=== PATIENT | female | born 1960 | race Caucasian/White ===

== ENCOUNTER 2023-08-10 00:21 | Observation (INO) | payer OTHER ==
[2023-08-10 02:20] LABS: INR 1.1 (<1.2); Partial Thromboplastin Time 28.3 sec (22.0-30.0); Prothrombin Time 12.3 sec (10.0-12.5)
[2023-08-10 02:31] LABS: Anisocytosis Slight; HCT 29.3 % (34.0-46.0); HGB 8.6 gm/dL (11.4-16.0); Hypochromasia Marked; MCH 21.9 pg (25.0-35.0); MCHC 29.5 g/dL (31.0-37.0); MCV 74.3 fL (80.0-100.0); Mean Platelet Volume 6.8; Microcytosis Moderate; Platelet Count 315 k/uL (150-450); RBC 3.94 m/uL (3.80-5.40); RDW 19.2 % (11.5-15.5); WBC 15.5 k/uL (3.8-10.6)
[2023-08-10] MEDS: IPRATROPIUM-ALBUTEROL 3 ML NEB INHALATION STA (02:32)
[2023-08-10] MEDS: ALBUTEROL NEBULIZED 2.5 MG/3 ML INHALATION STA (02:32)
[2023-08-10 02:33] LABS: ALT 30 U/L (4-34); AST 122 U/L (14-36); African American GFR (CKD) >90 (>60 ml/min/1.73 sqM); Albumin 3.8 g/dL (3.5-5.0); Alkaline Phosphatase 253 U/L (38-126); Blood Urea Nitrogen 5 mg/dL (7-17); Calcium 8.4 mg/dL (8.4-10.2); Carbon Dioxide 29 mmol/L (22-30); Glucose 85 mg/dL (74-99); Non-African American GFR(CKD) >90 (>60 ml/min/1.73 sqM); Potassium 3.9 mmol/L (3.5-5.1); Sodium 121 mmol/L (137-145); Total Bilirubin 1.4 mg/dL (0.2-1.3); Total Protein 7.1 g/dL (6.3-8.2)
[2023-08-10 02:38] LABS: NT-Pro-B-Type Natriuretic Pept 259 pg/mL
[2023-08-10 03:07] LABS: Anion Gap 5 mmol/L; Chloride 87 mmol/L (98-107)
[2023-08-10] MEDS ORDERED: IPRATROPIUM-ALBUTEROL 3 ML NEB INHALATION PRN (03:36)
[2023-08-10] MEDS ORDERED: NALOXONE 0.4 MG/ML 1 ML VIAL IVP PRN (03:36)
[2023-08-10 03:38] LABS: Anisocytosis (M) Present; Eosinophils # (M) 0.16 k/uL (0-0.7); Lymphocytes # (M) 2.79 k/uL (1.0-4.8); Monocytes # (M) 0.47 k/uL (0-1.0); Neutrophils # (M) 12.09 k/uL (1.3-7.7); Neutrophils % (M) 78 %; Nucleated Red Blood Cells 0 /100 WBC (0-0); Polychromasia Present; Target Cells Present; Total Cells Counted 100
[2023-08-10] MEDS: ACETAMINOPHEN TAB 325 MG TAB PO PRN (06:01)
[2023-08-10] MEDS: IPRATROPIUM-ALBUTEROL 3 ML NEB INHALATION SCH (08:12)
[2023-08-10] MEDS: predniSONE 20 MG TAB PO SCH (09:16)
[2023-08-10] MEDS: AMOXIC-POT CLAV 875-125MG 1 EACH TAB PO SCH (09:17)
[2023-08-10 11:02] LABS: ALT 26 U/L (4-34); AST 102 U/L (14-36); African American GFR (CKD) >90 (>60 ml/min/1.73 sqM); Albumin 3.5 g/dL (3.5-5.0); Albumin/Globulin Ratio 1.1; Alkaline Phosphatase 242 U/L (38-126); Anion Gap 5 mmol/L; Blood Urea Nitrogen 6 mg/dL (7-17); Calcium 8.6 mg/dL (8.4-10.2); Carbon Dioxide 32 mmol/L (22-30); Chloride 91 mmol/L (98-107); Globulin 3.2 g/dL; Glucose 89 mg/dL (74-99); Magnesium 1.7 mg/dL (1.6-2.3); Non-African American GFR(CKD) >90 (>60 ml/min/1.73 sqM); Sodium 128 mmol/L (137-145); Total Bilirubin 1.4 mg/dL (0.2-1.3); Total Protein 6.7 g/dL (6.3-8.2)
[2023-08-10 11:11] LABS: Anisocytosis Slight; Basophils % (A) 0 %; Eosinophils # (A) 0.4 k/uL (0-0.7); Eosinophils % (A) 3 %; HCT 28.3 % (34.0-46.0); HGB 8.3 gm/dL (11.4-16.0); Hypochromasia Marked; Lymphocytes # (A) 1.3 k/uL (1.0-4.8); Lymphocytes % (A) 10 %; MCH 22.2 pg (25.0-35.0); MCHC 29.5 g/dL (31.0-37.0); MCV 75.3 fL (80.0-100.0); Mean Platelet Volume 7.5; Microcytosis Moderate; Monocytes # (A) 0.8 k/uL (0-1.0); Monocytes % (A) 6 %; Neutrophils % (A) 81 %; Platelet Count 352 k/uL (150-450); RBC 3.76 m/uL (3.80-5.40); RDW 19.3 % (11.5-15.5); WBC 13.6 k/uL (3.8-10.6)
[2023-08-10 11:18] LABS: T4, Free (Free Thyroxine) 1.38 ng/dL (0.78-2.19)
[2023-08-10] MEDS: SUCRALFATE 1 GM TAB PO SCH (12:27)
--- NOTE | 2023-08-10 12:46 | P.HPIM ---
History of Present Illness H&P Date: 08/10/23 History of present illness; patient is 63-year-old lady with past medical history significant for COPD who presented to the ER as a transfer from [facility]. Patient initially presented to [facility] on 08/05 for shortness of breath and abdominal pain. Patient had workup done at that time and she was told that she needed to be transferred to [facility] for higher level of care but patient declined patient was discharged on antibiotics. Patient again presented to [facility] for worsening shortness of breath and abdominal pain. Patient denies any complaint of chest pain. There is no complaint palpitation. Denies any nausea or vomiting. Patient had CT scan of the chest done that showed emphysema. CT abdomen pelvis done showed malpositioned IUD with a fluid-filled endometrial wall, it also showed cardiomegaly with mild ascites. Patient was transferred to [facility] Initial lab work done in the ER showed WBC of 15.5, hemoglobin 8.6, platelet count 315, sodium 129, potassium 3.9, BUN 5, creatinine 0.39, bilirubin 1.4, AST 122, Influenza A not detected Influenza B not detected RSV not detected COVID-19 not detected Patient admitted to internal medicine service REVIEW OF SYSTEMS: CONSTITUTIONAL: No fever, no malaise, no fatigue. HEENT: No recent visual problems or hearing problems. Denied any sore throat. CARDIOVASCULAR: As mentioned HPI PULMONARY: As mentioned in HPI GASTROINTESTINAL: As mentioned HPI NEUROLOGICAL: No headaches, no weakness, no numbness. HEMATOLOGICAL: Denies any bleeding or petechiae. GENITOURINARY: Denies any burning micturition, frequency, or urgency. MUSCULOSKELETAL/RHEUMATOLOGICAL: Denies any joint pain, swelling, or any muscle pain. ENDOCRINE: Denies any polyuria or polydipsia. The rest of the 14-point review of systems is negative. PHYSICAL EXAMINATION: GENERAL: The patient is alert and oriented x3, not in any acute distress. Well developed, well nourished. HEENT: Pupils are round and equally reacting to light. EOMI. No scleral icterus. No conjunctival pallor. Normocephalic, atraumatic. No pharyngeal erythema. No thyromegaly. CARDIOVASCULAR: S1 and S2 present. No murmurs, rubs, or gallops. PULMONARY: Coarse breath sound bilaterally, no wheezing or crackles. ABDOMEN: Soft, nontender, nondistended, normoactive bowel sounds. No palpable organomegaly. MUSCULOSKELETAL: No joint swelling or deformity. EXTREMITIES: No cyanosis, clubbing, or pedal edema. NEUROLOGICAL: Gross neurological examination did not reveal any focal deficits. SKIN: No rashes. Assessment and plan Acute COPD exacerbation Acute hypoxic respiratory failure Hyponatremia Elevated LFTs Endometrial fluid collection Hypertension Monitor vital signs Monitor CBC Monitor CMP Continue telemetry monitoring Avoid hepatotoxic agent Monitor LFTs Ordered urine lites Order urine and serum osmolality Continue breathing treatments Continue IV Solu-Medrol Pulmonology consulted HELPER/DRIVER consulted Nephrology consulted Labs and medication were reviewed.. Continue same treatment. Continue with symptomatic treatment. Resume home medication. Monitor labs and vitals. DVT and GI prophylaxis. Further recommendations as per clinical course of the patient Dictation was produced using [employer] dictation software. please excuse any grammatical, word or spelling errors. Past Medical History Past Medical History: COPD, Hypertension History of Any Multi-Drug Resistant Organisms: None Reported Past Surgical History: Section, Cholecystectomy, Tonsillectomy Past Psychological History: No Psychological Hx Reported Smoking Status: Current every day smoker Past Alcohol Use History: Occasional Past Drug Use History: None Reported Medications and Allergies Home Medications Medication Instructions Recorded Confirmed Type Albuterol Sulfate [Ventolin HFA] 2 puff INHALATION RT-Q4H PRN 08/10/23 08/10/23 History Amoxic-Pot Clav 875-125Mg 1 tab PO Q12HR 08/10/23 08/10/23 History [Augmentin 875-125] Cetirizine HCl [Zyrtec] 10 mg PO HS 08/10/23 08/10/23 History Ergocalciferol [Vitamin D2 (1250 1,250 mcg PO WEEKLY 08/10/23 08/10/23 History Mcg = 88621 Iu)] Fluticasone Nasal [place] [Flonase 2 spray EA NOSTRIL DAILY 08/10/23 08/10/23 His tory Nasal [place]] Fluticasone/Umeclidin/Vilanter 1 puff INHALATION RT-DAILY 08/10/23 08/10/23 History [Trelegy Ellipta 200-62.5-25] Ipratropium Nebulized [Atrovent 0.5 mg INHALATION RT-QID 08/10/23 08/10/23 History Nebulized 0.2 MG/ML] Lisinopril-Hctz 10-12.5 mg 1 tab PO DAILY 08/10/23 08/10/23 History [Zestoretic 10-12.5] Montelukast [Singulair] 10 mg PO DAILY 08/10/23 08/10/23 History Ondansetron Odt [Zofran Odt] 4 mg PO Q4H PRN 08/10/23 08/10/23 History Pantoprazole Sodium [Protonix] 40 mg PO DAILY 08/10/23 08/10/23 History Sucralfate [Carafate] 1 gm PO ACHS 08/10/23 08/10/23 History predniSONE [Deltasone] 60 mg PO DAILY 08/10/23 08/10/23 History rOPINIRole HCL [Requip] 0.25 mg PO HS 08/10/23 08/10/23 History rOPINIRole HCL [Requip] 0.5 mg PO DAILY 08/10/23 08/10/23 History Allergies Allergy/AdvReac Type Severity Reaction Status Date / Time No Known Allergies Allergy Verified 08/10/23 08:46 Physical Exam Vitals: Vital Signs Temp Pulse Resp BP Pulse Ox 08/10/23 08:13 97 08/10/23 05:59 89 18 133/74 100 08/10/23 04:15 86 18 131/68 96 08/10/23 02:44 99 08/10/23 02:36 84 08/10/23 00:23 99.0 F 89 20 133/75 100 Intake and Output 08/09/23 08/10/23 08/10/23 22:59 06:59 14:59 Other: Voiding Method Toilet Weight 72.575 kg Results CBC & Chem 7: 08/10/23 09:51 08/10/23 09:51 Labs: Abnormal Lab Results - Last 24 Hours (Table) 08/10/23 08/10/23 Range/Units 01:41 01:41 WBC 15.5 H (3.8-10.6) k/uL Hgb 8.6 L (11.4-16.0) gm/dL Hct 29.3 L (34.0-46.0) % MCV 74.3 L (80.0-100.0) fL MCH 21.9 L (25.0-35.0) pg MCHC 29.5 L (31.0-37.0) g/dL RDW 19.2 H (11.5-15.5) % Neutrophils # (Manual) 12.09 H (1.3-7.7) k/uL Sodium 121 L (137-145) mmol/L Chloride 87 L (98-107) mmol/L BUN 5 L (7-17) mg/dL Creatinine 0.39 L (0.52-1.04) mg/dL Total Bilirubin 1.4 H (0.2-1.3) mg/dL AST 122 H (14-36) U/L Alkaline Phosphatase 253 H (38-126) U/L C-Reactive Protein 1.0 H (<1.0) mg/dL
--- NOTE | 2023-08-10 14:33 | P.CNPUL ---
History of Present Illness Consult date: 08/10/23 Requesting physician: Moshe Silva Reason for consult: dyspnea, COPD Chief complaint: Shortness of breath, nausea and vomiting History of present illness: This is a 63-year-old female patient who has a history of hypertension, gastroesophageal reflux disease, chronic tobacco dependence and chronic obstructive pulmonary disease along with near daily alcohol use several beers and was recently found to have a fatty liver and ascites while being evaluated at [facility]. She was there in the emergency room twice, had declined to be transferred here initially because of a special needs son. They discharged her from their on Augmentin then she returned there yesterday for ongoing symptoms of nausea vomiting and abdominal pain and she subsequently was transferred here to the emergency room early this morning. She is seen this morning in the emergency department. She is currently sitting on a stretcher. Awake and alert in no acute distress. She is still somewhat nauseated. She still has some shortness of breath. Nonproductive cough. No fever or chills. Maintaining O2 saturation in the 90s on 2 L/min per nasal cannula. Her initial sodium was 121. It is currently up to 128. White count 13.6. Hemoglobin 8.3. Platelets 352. Potassium 4.0. Bicarb 32. BUN 6. Creatinine 0.4. AST 102. ALT 26. Alk phos 242. TSH 7.02. Viral screen is negative. CT scan of the a bdomen showed malpositioned intrauterine device with fluid-filled endometrial wall. There was mild ascites. Cardiomegaly. CT scan of the chest showed emphysema. Review of Systems REVIEW OF SYSTEMS: CONSTITUTIONAL: Denies any recent significant weight loss or weight gain. EYES: Denies change in vision. EARS, NOSE, MOUTH, THROAT: Denies headaches, denies sore throat. CARDIOVASCULAR: Denies chest pain, palpitations or syncopal episodes. RESPIRATORY: Positive for shortness of breath, cough, congestion no hemoptysis. GASTROINTESTINAL: Positive for nausea, vomiting, abdominal pain GENITOURINARY: Denies hematuria, denies infections. MUSKULOSKELETAL: Denies pain, denies swelling. INTEGUMENTARY: Denies rash, denies eczema. NEUROLOGICAL: Denies recent memory loss, no recent seizure activity. PSYCHIATRIC: Denies anxiety, denies depression. HEMATOLOGIC/LYMPHATIC: Denies anemia, denies enlarged lymph nodes. Past Medical History Past Medical History: COPD, Hypertension History of Any Multi-Drug Resistant Organisms: None Reported Past Surgical History: Section, Cholecystectomy, Tonsillectomy Past Psychological History: No Psychological Hx Reported Smoking Status: Current every day smoker Past Alcohol Use History: Occasional Past Drug Use History: None Reported Medications and Allergies Home Medications Medication Instructions Recorded Confirmed Type Albuterol Sulfate [Ventolin HFA] 2 puff INHALATION RT-Q4H PRN 08/10/23 08/10/23 History Amoxic-Pot Clav 875-125Mg 1 tab PO Q12HR 08/10/23 08/10/23 History [Augmentin 875-125] Cetirizine HCl [Zyrtec] 10 mg PO HS 08/10/23 08/10/23 History Ergocalciferol [Vitamin D2 (1250 1,250 mcg PO WEEKLY 08/10/23 08/10/23 History Mcg = 54066 Iu)] Fluticasone Nasal [place] [Flonase 2 spray EA NOSTRIL DAILY 08/10/23 08/10/23 History Nasal [place]] Fluticasone/Umeclidin/Vilanter 1 puff INHALATION RT-DAILY 08/10/23 08/10/23 History [Trelegy Ellipta 200-62.5-25] Ipratropium Nebulized [Atrovent 0.5 mg INHALATION RT-QID 08/10/23 08/10/23 History Nebulized 0.2 MG/ML] Lisinopril-Hctz 10-12.5 mg 1 tab PO DAILY 08/10/23 08/10/23 History [Zestoretic 10-12.5] Montelukast [Singulair] 10 mg PO DAILY 08/10/23 08/10/23 History Ondansetron Odt [Zofran Odt] 4 mg PO Q4H PRN 08/10/23 08/10/23 History Pantoprazole Sodium [Protonix] 40 mg PO DAILY 08/10/23 08/10/23 History Sucralfate [Carafate] 1 gm PO ACHS 08/10/23 08/10/23 History predniSONE [Deltasone] 60 mg PO DAILY 08/10/23 08/10/23 History rOPINIRole HCL [Requip] 0.25 mg PO HS 08/10/23 08/10/23 History rOPINIRole HCL [Requip] 0.5 mg PO DAILY 08/10/23 08/10/23 History Allergies Allergy/AdvReac Type Severity Reaction Status Date / Time No Known Allergies Allergy Verified 08/10/23 08:46 Physical Exam Vitals: Vital Signs Temp Pulse Resp BP Pulse Ox 08/10/23 14:11 98.5 F 98 16 132/73 98 08/10/23 12:33 98.0 F 91 16 134/66 91 L 08/10/23 11:13 87 08/10/23 11:02 86 08/10/23 08:13 97 08/10/23 05:59 89 18 133/74 100 08/10/23 04:15 86 18 131/68 96 08/10/23 02:44 99 08/10/23 02:36 84 08/10/23 00:23 99.0 F 89 20 133/75 100 Intake and Output 08/09/23 08/10/23 08/10/23 22:59 06:59 14:59 Other: Voiding Method Toilet Weight 72.575 kg GENERAL EXAM: Alert, 63-year-old female, on 2 L nasal cannula, fairly comfortable in no apparent distress. HEAD: Normocephalic. EYES: Normal reaction of pupils, equal size. NOSE: Clear with pink turbinates. THROAT: No erythema or exudates. NECK: No masses, no JVD. CHEST: No chest wall deformity. LUNGS: Equal air entry with end expiratory wheeze, diminished. CVS: S1 and S2 normal with no audible murmur, regular rhythm. ABDOMEN: No hepatosplenomegaly, normal bowel sounds, no guarding or rigidity. SPINE: No scoliosis or deformity SKIN: No rashes CENTRAL NERVOUS SYSTEM: No focal deficits, tone is normal in all 4 extremities. EXTREMITIES: There is no peripheral edema. No clubbing, no cyanosis. Peripheral pulses are intact. Results - Laboratory Findings CBC and BMP: 08/10/23 09:51 08/10/23 09:51 PT/INR, D-dimer PT 12.3 sec (10.0-12.5) 08/10/23 01:41 INR 1.1 (<1.2) 08/10/23 01:41 Abnormal lab findings: Abnormal Labs 08/10/23 08/10/23 08/10/23 01:41 01:41 09:51 WBC 15.5 H 13.6 H RBC 3.76 L Hgb 8.6 L 8.3 L Hct 29.3 L 28.3 L MCV 74.3 L 75.3 L MCH 21.9 L 22.2 L MCHC 29.5 L 29.5 L RDW 19.2 H 19.3 H Neutrophils # 11.0 H Neutrophils # (Manual) 12.09 H Sodium 121 L Chloride 87 L Carbon Dioxide BUN 5 L Creatinine 0.39 L Total Bilirubin 1.4 H AST 122 H Alkaline Phosphatase 253 H C-Reactive Protein 1.0 H TSH 08/10/23 09:51 WBC RBC Hgb Hct MCV MCH MCHC RDW Neutrophils # Neutrophils # (Manual) Sodium 128 L Chloride 91 L Carbon Dioxide 32 H BUN 6 L Creatinine 0.40 L Total Bilirubin 1.4 H AST 102 H Alkaline Phosphatase 242 H C-Reactive Protein TSH 7.020 H Assessment and Plan Assessment: Acute hypoxemic respiratory failure secondary to an acute exacerbation of chronic obstructive pulmonary disease Chronic and ongoing tobacco dependence Hyponatremia possibly related to excess beer consumption Abdominal pain and discomfort suspect secondary to ascites Abnormal fluid around a chronic intrauterine device Ascites and elevated liver enzymes hepatic steatosis History of hypertension History of alcohol use Plan: The patient was seen and evaluated Labs and medications reviewed CT scans and labs from [facility] reviewed Add DuoNeb inhalations, Symbicort, prednisone taper Nephrology, GI service, GLAZE GRINDER consults placed Titrate the FiO2 as tolerated Educated regarding the importance of smoking cessation NicoDerm patch will be offered We will continue to follow and make further recommendations based on her clinical status I have personally seen and examined the patient, performed the documentation and the assessment and plan as written. Number of minutes spent on the visit: 20.
[2023-08-10] MEDS ORDERED: ONDANSETRON ODT 4 MG TAB PO PRN (19:04)
[2023-08-10] MEDS ORDERED: ALBUTEROL HFA INHALER INHALATION PRN (19:04)
[2023-08-10] MEDS: SYMBICORT 160-4.5 MCG INHALER INHALATION SCH (19:26)
[2023-08-10] MEDS ORDERED: IPRATROPIUM 0.5 MG/2.5 ML NEBU INHALATION SCH (20:00)
[2023-08-10] MEDS: LORATADINE 10 MG TAB PO SCH (20:31)
[2023-08-10] MEDS: LORazepam 0.5 MG TAB PO PRN (20:35)
[2023-08-10] MEDS: NICOTINE 21MG/24HR PATCH TRANSDERM SCH (21:37)
[2023-08-10] MEDS: KETOROLAC 15 MG/ML 1 ML VIAL IVP STA (21:40)
[2023-08-11] MEDS ORDERED: NON FORMULARY DRUG (Fluticasone/Umeclidin/Vilanter [Trelegy Ellipta 200-62.5-25] 1 EACH Bl INHALATION SCH (08:00)
--- NOTE | 2023-08-11 08:41 | US ---
EXAMINATION TYPE: US abdomen complete DATE OF EXAM: 08/11/2023 COMPARISON: NONE CLINICAL INDICATION: Female, 63 years old with history of Abdominal pain, ascites; abd pain TECHNIQUE: Multiple sonographic images of the abdomen are obtained. FINDINGS: EXAM MEASUREMENTS: Liver Length: 21.1 cm Gallbladder Wall: Surgically absent CBD: 0.2 cm Spleen: 10.5 cm Right Kidney: 10.6x4.5x5.9 cm Left Kidney: 10.5x5.3x4.7 cm Pancreas: mostly obscured by bowel gas Liver: echogenic and enlarged Gallbladder: Surgically absent Evidence for sonographic Grove's sign: No CBD: wnl Spleen: wnl Right Kidney: No hydronephrosis or masses seen Left Kidney: No hydronephrosis or masses seen Upper IVC: wnl Abd Aorta: wnl at proximal visualized portion IMPRESSION: 1. Hepatomegaly and steatosis. 2. Surgical absence of the gallbladder. 3.pancreas obscured by bowel gas. 4. No evidence of ascites. 5. Unremarkable kidneys.
[2023-08-11] MEDS: LISINOPRIL-HCTZ 10-12.5 MG 1 EACH TAB PO SCH (09:29)
[2023-08-11] MEDS: FLUTICASONE 50MCG/SPRAY NASAL 16GM EA NOSTRIL SCH (09:29)
[2023-08-11] MEDS: PANTOPRAZOLE 40 MG TABLET PO SCH (09:31)
[2023-08-11] MEDS: MONTELUKAST 10 MG TAB PO SCH (09:31)
--- NOTE | 2023-08-11 11:29 | P.PN ---
Subjective Progress Note Date: 08/11/23 This is a 63-year-old female patient who has a history of hypertension, gastroesophageal reflux disease, chronic tobacco dependence and chronic obstructive pulmonary disease along with near daily alcohol use several beers and was recently found to have a fatty liver and ascites while being evaluated at [facility]. She was there in the emergency room twice, had declined to be transferred here initially because of a special needs son. They discharged her from their on Augmentin then she returned there yesterday for ongoing symptoms of nausea vomiting and abdominal pain and she subsequently was transferred here to the emergency room early this morning. She is seen this morning in the emergency department. She is currently sitting on a stretcher. Awake and alert in no acute distress. She is still somewhat nauseated. She still has some shortness of breath. Nonproductive cough. No fever or chills. Maintaining O2 saturation in the 90s on 2 L/min per nasal cannula. Her initial sodium was 121. It is currently up to 128. White count 13.6. Hemoglobin 8.3. Platelets 352. Potassium 4.0. Bicarb 32. BUN 6. Creatinine 0.4. AST 102. ALT 26. Alk phos 242. TSH 7.02. Viral screen is negative. CT scan of the abdomen showed malpositioned intrauterine device with fluid-filled endometrial wall. There was mild ascites. Cardiomegaly. CT scan of the chest showed emphysema. The patient is seen today August 11, 2023 in follow-up on the regular medical floor. She is currently sitting up in bed. Awake and alert in no acute distress. Feeling better today compared to yesterday. She is maintaining O2 saturations in the 90s on 3 L/min per nasal cannula. She has been afebrile. Hemodynamically stable. Still having some issues with abdominal discomfort. Ultrasound of the abdomen reveals hepatomegaly and steatosis. No evidence of ascites. Cholecystectomy. Unremarkable kidneys. She is continued on DuoNeb and elations, Symbicort, Singulair, prednisone. NicoDerm patch in place. Objective - Vital Signs Vital signs: Vital Signs Temp 98.7 F 08/11/23 07:00 Pulse 100 08/11/23 08:09 Resp 19 08/11/23 08:00 BP 123/69 08/11/23 07:00 Pulse Ox 90 L 08/11/23 07:00 FiO2 Intake & Output 08/10/23 08/11/23 08/11/23 18:59 06:59 18:59 Intake Total 118 118 Balance 118 118 Weight 72.575 kg Intake: Oral 118 118 Other: Voiding Method Toilet Toilet # Voids 3 - Exam GENERAL EXAM: Alert, 63-year-old female, on 3 L nasal cannula, comfortable in no apparent distress. HEAD: Normocephalic. EYES: Normal reaction of pupils, equal size. NOSE: Clear with pink turbinates. THROAT: No erythema or exudates. NECK: No masses, no JVD. CHEST: No chest wall deformity. LUNGS: Equal air entry with end expiratory wheeze, diminished. CVS: S1 and S2 normal with no audible murmur, regular rhythm. ABDOMEN: Abdominal distention, normal bowel sounds, no guarding or rigidity. SPINE: No scoliosis or deformity SKIN: No rashes CENTRAL NERVOUS SYSTEM: No focal deficits, tone is normal in all 4 extremities. EXTREMITIES: There is no peripheral edema. No clubbing, no cyanosis. Peripheral pulses are intact. - Labs CBC & Chem 7: 08/10/23 09:51 08/10/23 09:51 Labs: Abnormal Lab Results - Last 24 Hours (Table) 08/10/23 08/10/23 Range/Units 09:51 21:49 TSH 7.020 H (0.465-4.680) mIU/L Urine Osmolality 266 L (400-1100) mOsm/kg Assessment and Plan Assessment: Acute hypoxemic respiratory failure secondary to an acute exacerbation of chronic obstructive pulmonary disease Chronic and ongoing tobacco dependence Hyponatremia possibly related to excess beer consumption improved to 128 Abdominal pain and discomfort. Ultrasound today did not reveal any evidence of ascites. There is hepatomegaly and steatosis. Abnormal fluid around a chronic intrauterine device History of hypertension History of alcohol use Plan: The patient was seen and evaluated Ultrasound of the abdomen and medications reviewed No evidence of ascites Today's labs are pending Continue DuoNeb inhalations, Symbicort, prednisone taper Titrate the FiO2 as tolerated We will continue to follow I have personally seen and examined the patient, performed the documentation and the assessment and plan as written. Number of minutes spent on the visit: 10.
--- NOTE | 2023-08-11 13:19 | P.PN ---
Subjective Progress Note Date: 08/11/23 patient is 63-year-old lady with past medical history significant for COPD who presented to the ER as a transfer from [facility]. Patient initially presented to [facility] on 08/05 for shortness of breath and abdominal pain. Patient had workup done at that time and she was told that she needed to be transferred to [facility] for higher level of care but patient declined patient was discharged on antibiotics. Patient again presented to [facility] for worsening shortness of breath and abdominal pain. Patient denies any complaint of chest pain. There is no complaint palpitation. Denies any nausea or vomiting. Patient had CT scan of the chest done that sh owed emphysema. CT abdomen pelvis done showed malpositioned IUD with a fluid- filled endometrial wall, it also showed cardiomegaly with mild ascites. Patient was transferred to [facility] Initial lab work done in the ER showed WBC of 15.5, hemoglobin 8.6, platelet count 315, sodium 129, potassium 3.9, BUN 5, creatinine 0.39, bilirubin 1.4, AST 122, Influenza A not detected Influenza B not detected RSV not detected COVID-19 not detected Patient admitted to internal medicine service 08/10. Patient seen and examined. States breathing is improved. Denies any nausea or vomiting. Abdominal pain also improved REVIEW OF SYSTEMS: CONSTITUTIONAL: No fever, no malaise,. CARDIOVASCULAR: No chest pain, no palpitations, no syncope. PULMONARY: No shortness of breath, no cough, GASTROINTESTINAL: As mentioned above NEUROLOGICAL: No headaches, no weakness, PHYSICAL EXAMINATION: GENERAL: The patient is alert and oriented x3, not in any acute distress. Well developed, well nourished. HEENT: Pupils are round and equally reacting to light. EOMI. No scleral icterus. No conjunctival pallor. Normocephalic, atraumatic. No pharyngeal erythema. No thyromegaly. CARDIOVASCULAR: S1 and S2 present. No murmurs, rubs, or gallops. PULMONARY: Diminished breath sound the bases bilaterally, no wheezing or crackles. ABDOMEN: Soft, nontender, nondistended, normoactive bowel sounds. No palpable organomegaly. MUSCULOSKELETAL: No joint swelling or deformity. EXTREMITIES: No cyanosis, clubbing, or pedal edema. NEUROLOGICAL: Gross neurological examination did not reveal any focal deficits. SKIN: No rashes. Assessment and plan Acute COPD exacerbation Acute hypoxic respiratory failure Hyponatremia Elevated LFTs Endometrial fluid collection Hypertension Monitor vital signs Monitor CBC Monitor CMP Continue telemetry monitoring Avoid hepatotoxic agent Monitor LFTs Continue breathing treatments Continue IV Solu-Medrol Pulmonology following LEGAL INSTRUCTOR consulted Nephrology consulted Labs and medication were reviewed.. Continue same treatment. Continue with symptomatic treatment. Resume home medication. Monitor labs and vitals. DVT and GI prophylaxis. Further recommendations as per clinical course of the patient Dictation was produced using [employer] dictation software. please excuse any grammatical, word or spelling errors. Objective - Vital Signs Vital signs: Vital Signs Temp 98.7 F 08/11/23 07:00 Pulse 96 08/11/23 11:33 Resp 19 08/11/23 08:00 BP 123/69 08/11/23 07:00 Pulse Ox 90 L 08/11/23 07:00 FiO2 Intake & Output 08/10/23 08/11/23 08/11/23 18:59 06:59 18:59 Intake Total 118 118 Balance 118 118 Weight 72.575 kg Intake: Oral 118 118 Other: Voiding Method Toilet Toilet # Voids 3 - Labs CBC & Chem 7: 08/10/23 09:51 08/10/23 09:51 Labs: Abnormal Lab Results - Last 24 Hours (Table) 08/10/23 Range/Units 21:49 Urine Osmolality 266 L (400-1100) mOsm/kg
[2023-08-11 13:51] LABS: African American GFR (CKD) >90 (>60 ml/min/1.73 sqM); Anion Gap -1 mmol/L; Blood Urea Nitrogen 7 mg/dL (7-17); Calcium 8.7 mg/dL (8.4-10.2); Carbon Dioxide 38 mmol/L (22-30); Chloride 94 mmol/L (98-107); Glucose 130 mg/dL (74-99); Non-African American GFR(CKD) >90 (>60 ml/min/1.73 sqM); Sodium 131 mmol/L (137-145)
--- NOTE | 2023-08-11 14:26 | P.NPCON ---
History of Present Illness - Reason for Consult hyponatremia - History of Present Illness patient is a 63-year-old female with history of hypertension, COPD, EtOH abuse and history of fatty liver. Patient is admitted to the hospital with complaints of nausea vomiting, abdominal pain and increased weakness.patient was transferred from [facility]. Serum sodium was 121 on initial admission and has improved to 131 today. I do not see any IV fluids that were administered. Patient is also maintained on hydrochlorothiazide at home. serum creatinine 0.4 no hypotension noted. Review of Systems as per HPI Past Medical History Past Medical History: COPD, Hypertension, Pneumonia History of Any Multi-Drug Resistant Organisms: None Reported Past Surgical History: Section, Cholecystectomy, Tonsillectomy Past Anesthesia/Blood Transfusion Reactions: No Reported Reaction Past Psychological History: Anxiety, Depression Smoking Status: Current every day smoker Past Alcohol Use History: Heavy Additional Past Alcohol Use History / Comment(s): recently drinking a lot of etoh related to home life stresses, pt drinks beer, wine and vodka. Pt states last drink was 08/09/23 Past Drug Use History: None Reported - Past Family History Mother Additional Family Medical History / Comment(s): emphysema Father Family Medical History: Myocardial Infarction (OR) Medications and Allergies Home Medications Medication Instructions Recorded Confirmed Type Albuterol Sulfate [Ventolin HFA] 2 puff INHALATION RT-Q4H PRN 08/10/23 08/10/23 History Amoxic-Pot Clav 875-125Mg 1 tab PO Q12HR 08/10/23 08/10/23 History [Augmentin 875-125] Cetirizine HCl [Zyrtec] 10 mg PO HS 08/10/23 08/10/23 History Ergocalciferol [Vitamin D2 (1250 1,250 mcg PO WEEKLY 08/10/23 08/10/23 History Mcg = 91356 Iu)] Fluticasone Nasal [place] [Flonase 2 spray EA NOSTRIL DAILY 08/10/23 08/10/23 History Nasal [place]] Fluticasone/Umeclidin/Vilanter 1 puff INHALATION RT-DAILY 08/10/23 08/10/23 History [Trelegy Ellipta 200-62.5-25] Ipratropium Nebulized [Atrovent 0.5 mg INHALATION RT-QID 08/10/23 08/10/23 History Nebulized 0.2 MG/ML] Lisinopril-Hctz 10-12.5 mg 1 tab PO DAILY 08/10/23 08/10/23 History [Zestoretic 10-12.5] Montelukast [Singulair] 10 mg PO DAILY 08/10/23 08/10/23 History Ondansetron Odt [Zofran Odt] 4 mg PO Q4H PRN 08/10/23 08/10/23 History Pantoprazole Sodium [Protonix] 40 mg PO DAILY 08/10/23 08/10/23 History Sucralfate [Carafate] 1 gm PO ACHS 08/10/23 08/10/23 History predniSONE [Deltasone] 60 mg PO DAILY 08/10/23 08/10/23 History rOPINIRole HCL [Requip] 0.25 mg PO HS 08/10/23 08/10/23 History rOPINIRole HCL [Requip] 0.5 mg PO DAILY 08/10/23 08/10/23 History Allergies Allergy/AdvReac Type Severity Reaction Status Date / Time No Known Allergies Allergy Verified 08/10/23 08:46 Physical Exam Vitals: Vital Signs Temp Pulse Pulse Resp BP Pulse Ox 08/11/23 11:33 96 08/11/23 11:24 100 08/11/23 08:09 100 08/11/23 08:00 100 19 08/11/23 07:56 100 08/11/23 07:00 98.7 F 100 19 123/69 90 L 08/11/23 02:22 98.5 F 90 20 133/76 96 08/10/23 20:00 98.9 F 97 20 113/67 94 L 08/10/23 19:35 100 08/10/23 19:27 97 08/10/23 17:44 98.7 F 97 18 112/65 94 L 08/10/23 17:40 85 L 08/10/23 15:52 90 08/10/23 15:42 82 Intake and Output 08/10/23 08/11/23 08/11/23 22:59 06:59 14:59 Intake Total 118 118 Balance 118 118 Intake: Oral 118 118 Other: Voiding Method Toilet Toilet # Voids 3 3 Weight 72.575 kg patient is awake, comfortable, no acute distress. 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 Hyponatremia secondary to beer potomania, improved post hospitalization. Patient has not received any IV fluids. 2. EtOH abuse with history of fatty liver 3. history of COPD with acute exacerbation 4. Acute hypoxic respiratory failure, improving. Plan: continue off of IV fluids. Avoid excessive beer intake. Increase oral intake particularly protein Repeat labs in a.m.
[2023-08-11 14:59] VITALS: RESP 18
[2023-08-12 09:04] LABS: Basophils # (A) 0.05 X 10*3/uL (0.00-0.10); Basophils % (A) 0.3 %; Eosinophils # (A) 0.39 X 10*3/uL (0.04-0.35); Eosinophils % (A) 2.2 %; HCT 28.9 % (37.2-46.3); Lymphocytes # (A) 2.32 X 10*3/uL (0.90-5.00); Lymphocytes % (A) 13.1 %; MCH 21.9 pg (27.0-32.0); MCHC 27.7 g/dL (32.0-37.0); Mean Platelet Volume 9.5 FL (9.5-12.2); Monocytes # (A) 1.09 X 10*3/uL (0.20-1.00); Monocytes % (A) 6.2 %; NRBC Per 100 WBC 0 X 10*3/uL (0.00-0.01); Neutrophils # (A) 13.75 X 10*3/uL (1.80-7.70); Neutrophils % (A) 77.7 %; Platelet Count 375 X 10*3/uL (140-440); RBC 3.66 X 10*6/uL (4.10-5.20); RDW 21.1 % (11.5-14.5); WBC 17.68 X 10*3/uL (4.50-10.00)
[2023-08-12 09:32] LABS: BUN/Creat Ratio 9.83 Ratio (12.00-20.00); Blood Urea Nitrogen 5.9 mg/dL (9.0-27.0); Carbon Dioxide 31.9 mmol/L (21.6-31.8); Chloride 93 mmol/L (96-109); Glucose 126 mg/dL (70-110); Potassium 3.7 mmol/L (3.5-5.5); Sodium 136 mmol/L (135-145)
[2023-08-12 09:33] LABS: ALT 26 U/L (8-44); AST 94 U/L (13-35); Albumin 3.6 g/dL (3.8-4.9); Albumin/Globulin Ratio 1.33 Ratio (1.60-3.17); Alkaline Phosphatase 224 U/L (41-126); Calcium 9.3 mg/dL (8.7-10.3); Globulin 2.7 g/dL (1.6-3.3); Total Bilirubin 0.8 mg/dL (0.3-1.2); Total Protein 6.3 g/dL (6.2-8.2)
--- NOTE | 2023-08-12 12:42 | P.PN ---
Subjective Progress Note Date: 08/12/23 This is a 63-year-old female patient who has a history of hypertension, gastroesophageal reflux disease, chronic tobacco dependence and chronic obstructive pulmonary disease along with near daily alcohol use several beers and was recently found to have a fatty liver and ascites while being evaluated at [facility]. She was there in the emergency room twice, had declined to be transferred here initially because of a special needs son. They discharged her from their on Augmentin then she returned there yesterday for ongoing symptoms of nausea vomiting and abdominal pain and she subsequently was transferred here to the emergency room early this morning. She is seen this morning in the emergency department. She is currently sitting on a stretcher. Awake and alert in no acute distress. She is still somewhat nauseated. She still has some shortness of breath. Nonproductive cough. No fever or chills. Maintaining O2 saturation in the 90s on 2 L/min per nasal cannula. Her initial sodium was 121. It is currently up to 128. White count 13.6. Hemoglobin 8.3. Platelets 352. Potassium 4.0. Bicarb 32. BUN 6. Creatinine 0.4. AST 102. ALT 26. Alk phos 242. TSH 7.02. Viral screen is negative. CT scan of the abdomen showed malpositioned intrauterine device with fluid-filled endometrial wall. There was mild ascites. Cardiomegaly. CT scan of the chest showed emphysema. The patient is seen today August 11, 2023 in follow-up on the regular medical floor. She is currently sitting up in bed. Awake and alert in no acute distress. Feeling better today compared to yesterday. She is maintaining O2 saturations in the 90s on 3 L/min per nasal cannula. She has been afebrile. Hemodynamically stable. Still having some issues with abdominal discomfort. Ultrasound of the abdomen reveals hepatomegaly and steatosis. No evidence of ascites. Cholecystectomy. Unremarkable kidneys. She is continued on DuoNeb and elations, Symbicort, Singulair, prednisone. NicoDerm patch in place. The patient is seen today August 12, 2023 in follow-up on the regular medical floor. She is currently sitting up at the bedside. Awake and alert in no acute distress. She is breathing easier today compared to yesterday. Denies any worsening shortness of breath, cough or congestion. She is maintaining good O2 saturations in the 90s on 2 L/min per nasal cannula. She is continued on DuoNeb and elations, Symbicort, Singulair, prednisone taper. NicoDerm patch in place. White count 17.6. Hemoglobin 8.0. Sodium 136. Potassium 3.7. Bicarb 32. BUN 6. Creatinine 0.6. Glucose 126. Objective - Vital Signs Vital signs: Vital Signs Temp 98.2 F 08/12/23 07:55 Pulse 88 08/12/23 11:57 Resp 18 08/12/23 08:00 BP 113/69 08/12/23 09:05 Pulse Ox 92 L 08/12/23 07:55 FiO2 Intake & Output 08/11/23 08/12/23 08/12/23 18:59 06:59 18:59 Intake Total 1067 813 118 Balance 1067 813 118 Intake: Oral 1067 813 118 Other: Voiding Method Toilet Toilet # Voids 1 3 - Exam GENERAL EXAM: Alert, 63-year-old female, sitting up at the bedside, on 2 L nasal cannula, comfortable in no apparent distress. HEAD: Normocephalic. EYES: Normal reaction of pupils, equal size. NOSE: Clear with pink turbinates. THROAT: No erythema or exudates. NECK: No masses, no JVD. CHEST: No chest wall deformity. LUNGS: Equal air entry with end expiratory wheeze, diminished. CVS: S1 and S2 normal with no audible murmur, regular rhythm. ABDOMEN: Abdominal distention, normal bowel sounds, no guarding or rigidity. SPINE: No scoliosis or deformity SKIN: No rashes CENTRAL NERVOUS SYSTEM: No focal deficits, tone is normal in all 4 extremities. EXTREMITIES: There is no peripheral edema. No clubbing, no cyanosis. Peripheral pulses are intact. - Labs CBC & Chem 7: 08/12/23 06:04 08/12/23 06:04 Labs: Abnormal Lab Results - Last 24 Hours (Table) 08/11/23 08/12/23 08/12/23 Range/Units 13:10 06:04 06:04 WBC 17.68 H (4.50-10.00) X 10*3/uL RBC 3.66 L (4.10-5.20) X 10*6/uL Hgb 8.0 L (12.0-15.0) g/dL Hct 28.9 L (37.2-46.3) % MCV 79.0 L (80.0-97.0) FL MCH 21.9 L (27.0-32.0) pg MCHC 27.7 L (32.0-37.0) g/dL RDW 21.1 H (11.5-14.5) % Immature Gran # 0.08 H (0.00-0.04) X 10*3/uL Neutrophils # 13.75 H (1.80-7.70) X 10*3/uL Monocytes # 1.09 H (0.20-1.00) X 10*3/uL Eosinophils # 0.39 H (0.04-0.35) X 10*3/uL Sodium 131 L (137-145) mmol/L Chloride 94 L 93 L (98-107) mmol/L Carbon Dioxide 38 H 31.9 H (22-30) mmol/L BUN 5.9 L (9.0-27.0) mg/dL Creatinine 0.39 L (0.52-1.04) mg/dL BUN/Creatinine Ratio 9.83 L (12.00-20.00) Ratio Glucose 130 H 126 H (74-99) mg/dL AST 94 H (13-35) U/L Alkaline Phosphatase 224 H (41-126) U/L Albumin 3.6 L (3.8-4.9) g/dL Albumin/Globulin Ratio 1.33 L (1.60-3.17) Ratio Assessment and Plan Assessment: Acute hypoxemic respiratory failure secondary to an acute exacerbation of chronic obstructive pulmonary disease Chronic and ongoing tobacco dependence Hyponatremia possibly related to excess beer consumption/potomania improved to 136 Abdominal pain and discomfort. Ultrasound today did not reveal any evidence of ascites. There is hepatomegaly and steatosis. Abnormal fluid around a chronic intrauterine device History of hypertension History of alcohol use Plan: The patient was seen and evaluated Labs and medications reviewed Sodium improved to 136 Continue DuoNeb inhalations, Symbicort, prednisone taper Educated regarding the importance of smoking cessation Educated regarding the importance of alcohol cessation Evaluate for possible home oxygen Cleared for discharge from the pulmonary standpoint I have personally seen and examined the patient, performed the documentation and the assessment and plan as written. Number of minutes spent on the visit: 10.
--- NOTE | 2023-08-12 12:59 | P.DS ---
Providers Date of admission: 08/10/23 03:37 Expected date of discharge: 08/12/23 Attending physician: Lori Casillas Consults: 08/10/23 03:36 Consult Physician Routine Consulting Provider: Ricardo Spence Consult Reason/Comments: COPD exacerbation Do you want consulting provider notified?: Yes 08/10/23 03:38 Consult Physician Routine Consulting Provider: Haile Dominguez Consult Reason/Comments: endometrial collection Do you want consulting provider notified?: Yes 08/10/23 09:13 Consult Physician Routine Consulting Provider: Azucena Carmichael Consult Reason/Comments: Liver abnormalities Do you want consulting provider notified?: Yes 08/10/23 09:14 Consult Physician Routine Consulting Provider: Emily Vergara Consult Reason/Comments: Hyponatremia Do you want consulting provider notified?: Yes Primary care physician: [facility] Course: Discharge diagnoses; Acute COPD exacerbation Acute hypoxic respiratory failure Hyponatremia Elevated LFTs Endometrial fluid collection Hypertension Hospital course; patient is 63-year-old lady with past medical history significant for COPD who presented to the ER as a transfer from [facility]. Patient initially presented to [facility] on 08/05 for shortness of breath and abdominal pain. Patient had workup done at that time and she was told that she needed to be transferred to [facility] for higher level of care but patient declined patient was discharged on antibiotics. Patient again presented to [facility] for worsening shortness of breath and abdominal pain. Patient denies any complaint of chest pain. There is no complaint palpitation. Denies any nausea or vomiting. Patient had CT scan of the chest done that showed emphysema. CT abdomen pelvis done showed malpositioned IUD with a fluid- filled endometrial wall, it also showed cardiomegaly with mild ascites. Patient was transferred to [facility] Initial lab work done in the ER showed WBC of 15.5, hemoglobin 8.6, platelet count 315, sodium 129, potassium 3.9, BUN 5, creatinine 0.39, bilirubin 1.4, AST 122, Influenza A not detected Influenza B not detected RSV not detected COVID-19 not detected Patient admitted to internal medicine service 08/10. Patient seen and examined. States breathing is improved. Denies any nausea or vomiting. Abdominal pain also improved 08/11. Patient seen and examined. Blood work done showed WBC 19.68, hemoglobin 8, platelet count 375, sodium 136, potassium 3.7, BUN 5.9, creatinine 0.6. Patient not requiring any oxygen. Patient keen to go home. Pulmonology has cleared the patient for discharge. 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 Well developed, well nourished. HEENT: Pupils are round and equally reacting to light. EOMI. No scleral icterus. No conjunctival pallor. Normocephalic, atraumatic. No pharyngeal erythema. No thyromegaly. CARDIOVASCULAR: S1 and S2 present. No murmurs, rubs, or gallops. PULMONARY: Chest is clear to auscultation, no wheezing or crackles. ABDOMEN: Soft, nontender, nondistended, normoactive bowel sounds. No palpable organomegaly. MUSCULOSKELETAL: No joint swelling or deformity. EXTREMITIES: No cyanosis, clubbing, or pedal edema. NEUROLOGICAL: Gross neurological examination did not reveal any focal deficits. SKIN: No rashes. Dictation was produced using [employer] dictation software. please excuse any grammatical, word or spelling errors. Patient Condition at Discharge: Fair Plan - Discharge Summary Discharge Rx Participant: No New Discharge Prescriptions: Continue Ipratropium Nebulized [Atrovent Nebulized 0.2 MG/ML] 0.5 mg INHALATION RT-QID Fluticasone Nasal [place] [Flonase Nasal [place]] 2 spray EA NOSTRIL DAILY Albuterol Sulfate [Ventolin HFA] 2 puff INHALATION RT-Q4H PRN PRN Reason: Shortness Of Breath Ergocalciferol [Vitamin D2 (1250 Mcg = 18792 Iu)] 1,250 mcg PO WEEKLY rOPINIRole HCL [Requip] 0.25 mg PO HS Sucralfate [Carafate] 1 gm PO ACHS Pantoprazole Sodium [Protonix] 40 mg PO DAILY Montelukast [Singulair] 10 mg PO DAILY Fluticasone/Umeclidin/Vilanter [Trelegy Ellipta 200-62.5-25] 1 puff INHALATION RT-DAILY Cetirizine HCl [Zyrtec] 10 mg PO HS predniSONE [Deltasone] 60 mg PO DAILY Lisinopril-Hctz 10-12.5 mg [Zestoretic 10-12.5] 1 tab PO DAILY rOPINIRole HCL [Requip] 0.5 mg PO DAILY Ondansetron Odt [Zofran ODT] 4 mg PO Q4H PRN PRN Reason: Nausea Amoxic-Pot Clav 875-125Mg [Augmentin 875-125] 1 tab PO Q12HR Discharge Medication List Albuterol Sulfate [Ventolin HFA] 2 puff INHALATION RT-Q4H PRN 08/10/23 [History] Amoxic-Pot Clav 875-125Mg [Augmentin 875-125] 1 tab PO Q12HR 08/10/23 [History] Cetirizine HCl [Zyrtec] 10 mg PO HS 08/10/23 [History] Ergocalciferol [Vitamin D2 (1250 Mcg = 10332 Iu)] 1,250 mcg PO WEEKLY 08/10/23 [History] Fluticasone Nasal [place] [Flonase Nasal [place]] 2 spray EA NOSTRIL DAILY 08/10/23 [History] Fluticasone/Umeclidin/Vilanter [Trelegy Ellipta 200-62.5-25] 1 puff INHALATION RT-DAILY 08/10/23 [History] Ipratropium Nebulized [Atrovent Nebulized 0.2 MG/ML] 0.5 mg INHALATION RT-QID 08/10/23 [History] Lisinopril-Hctz 10-12.5 mg [Zestoretic 10-12.5] 1 tab PO DAILY 08/10/23 [History] Montelukast [Singulair] 10 mg PO DAILY 08/10/23 [History] Ondansetron Odt [Zofran ODT] 4 mg PO Q4H PRN 08/10/23 [History] Pantoprazole Sodium [Protonix] 40 mg PO DAILY 08/10/23 [History] Sucralfate [Carafate] 1 gm PO ACHS 08/10/23 [History] predniSONE [Deltasone] 60 mg PO DAILY 08/10/23 [History] rOPINIRole HCL [Requip] 0.25 mg PO HS 08/10/23 [History] rOPINIRole HCL [Requip] 0.5 mg PO DAILY 08/10/23 [History] Follow up Appointment(s)/Referral(s): Shirin Dennis MD [Primary Care Provider] - 1 Week Haile Dominguez MD [STAFF PHYSICIAN] - 1 Week (please make follow up appointment for IUD evaluation. ) Ricardo Spence MD [STAFF PHYSICIAN] - 1 Week Discharge Disposition: HOME SELF-CARE
[2023-08-12 14:58] VITALS: BP 113/61; TEMP 98.5
[2023-08-12 15:45] VITALS: PULSE 96
--- NOTE | 2023-08-12 19:01 | P.PN ---
Subjective Patient is seen for f/u for hyponatremia. Sodium at 136 today. No complaints. Objective - Vital Signs Vital signs: Vital Signs Temp 98.5 F 08/12/23 14:06 Pulse 97 08/12/23 14:06 Resp 18 08/12/23 14:06 BP 113/61 08/12/23 14:06 Pulse Ox 96 08/12/23 14:06 FiO2 Intake & Output 08/11/23 08/12/23 08/12/23 18:59 06:59 18:59 Intake Total 1067 813 236 Balance 1067 813 236 Intake: Oral 1067 813 236 Other: Voiding Method Toilet Toilet # Voids 1 3 3 - Exam patient is awake, comfortable, no acute distress. 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6-31.8) mmol/L BUN 5.9 L (9.0-27.0) mg/dL BUN/Creatinine Ratio 9.83 L (12.00-20.00) Ratio Glucose 126 H (70-110) mg/dL AST 94 H (13-35) U/L Alkaline Phosphatase 224 H (41-126) U/L Albumin 3.6 L (3.8-4.9) g/dL Albumin/Globulin Ratio 1.33 L (1.60-3.17) Ratio Assessment and Plan Assessment: 1. Hyponatremia secondary to beer potomania, improved post hospitalization. Patient has not received any IV fluids. 2. EtOH abuse with history of fatty liver 3. history of COPD with acute exacerbation 4. Acute hypoxic respiratory failure, improving. Plan: continue off of IV fluids. Avoid excessive beer intake. Increase oral intake particularly protein Stable for discharge.
[2023-08-17] MEDS ORDERED: ERGOCALCIFEROL 1,250 MCG (50,000 IU) CAPSULE PO SCH (09:00)
== END 2023-08-12 17:23 | disposition home or self-care (01) ==
LOC: EC 00:21 → 6NMEDSUR 03:37
PROVIDERS: ADMIT Hospitalist; ATTEND Hospitalist
DX: J43.9 Emphysema, unspecified (principal); J96.01 Acute respiratory failure with hypoxia; E87.1 Hypo-osmolality and hyponatremia; T83.32XA Displacement of intrauterine contraceptive device, initial encounter; Y76.2 Prosthetic and other implants, materials and accessory obstetric and gynecological devices associated with adverse incidents; F10.10 Alcohol abuse, uncomplicated; I11.9 Hypertensive heart disease without heart failure; K76.0 Fatty (change of) liver, not elsewhere classified; R16.0 Hepatomegaly, not elsewhere classified; R18.8 Other ascites; F17.200 Nicotine dependence, unspecified, uncomplicated; Z11.52 Encounter for screening for COVID-19; Z11.59 Encounter for screening for other viral diseases; Z79.51 Long term (current) use of inhaled steroids; Z79.52 Long term (current) use of systemic steroids; Z79.899 Other long term (current) drug therapy; Z90.49 Acquired absence of other specified parts of digestive tract
CPT/HCPCS: 96374; 99285; 36415; 94640 ×6; 94760; 93005; 84439; 84300; 83880; 80053 ×2; 80048; 82533; 83605; 83735; 84443; 84484; 85025 ×2; 85610; 85730; 86140; 83935; 87636; 76700; G0378 ×3; J1885; J7512 ×2